=== PATIENT | female | born 1980 | race African-American/Black ===

== ENCOUNTER 2017-01-14 03:29 | Inpatient (IN) ==
[2017-01-14] MEDS ORDERED: MAG-AL + SIM ORAL LIQUID 30ml PO PRN ×2 (06:42→19:01)
[2017-01-14] MEDS ORDERED: CALCIUM CARBONATE Chewable 500mg TABLET PO PRN ×2 (06:42→19:01)
[2017-01-14] MEDS ORDERED: LIDOCAINE 1% (10mg/ml) 2mL INJ PF SDV ID PRN (06:42)
[2017-01-14] MEDS ORDERED: CARBOPROST 250 MCG/ML INJECTION IM PRN (06:42)
[2017-01-14] MEDS ORDERED: ACETAMINOPHEN 500 MG TABLET PO PRN ×2 (06:42→19:01)
[2017-01-14] MEDS ORDERED: OXYTOCIN DRIP 30 UNIT/500 ML ML IV PRN (06:42)
[2017-01-14] MEDS ORDERED: METHYLERGONOVINE 0.2 MG/ML INJECTION IM PRN (06:42)
[2017-01-14 07:26] VITALS: BMI 27.6
[2017-01-14] MEDS: LR 1,000 ML IV PRN ×3 (07:37→21:47)
[2017-01-14] MEDS: D5LR 1,000 ML IV PRN ×2 (07:40→16:00)
[2017-01-14] MEDS: ONDANSETRON 4 MG/2 ML INJECTION IVP PRN ×2 (07:58→14:03)
--- NOTE | 2017-01-14 18:35 | Anesthesia Postoperative Note ---
- Date and Time Date: 01/14/17 Time: 18:32 - Status Patient Participated in Evaluation: Patient Participated in Person Vital Signs: Pulse Rate 105 H 01/14/17 07:19 Respiratory Rate 16 01/14/17 07:19 Blood Pressure 127/96 H 01/14/17 07:19 Respiratory Function: Airway Patent, Regular Respirations Cardiovascular Function: Regular Pulse Mental Status: Alert and Oriented Pain Intensity: 0 Hydration: Taking PO Fluids Complications During Recover: None Apparent Post Anesthesia Care Notes: moves lower extremeties without problems. Spoke with patient about anesthesia plan for PPTL procedure tomorrow. Plan on removing catheter and placing a spinal for her procedure. Questions invited and answered. Graciela Coley [employer] - Follow-Up Instructions Instructions: Per Surgeon
[2017-01-14] MEDS ORDERED: DiphenhydrAMINE 25 MG CAPSULE PO PRN (19:01)
[2017-01-14] MEDS ORDERED: OXYTOCIN DRIP 30 UNIT/500 ML ML IV SCH (19:01)
[2017-01-14] MEDS ORDERED: HYDROCORTISONE 2.5% CREAM 30gm RECTALLY PRN (19:01)
[2017-01-14] MEDS ORDERED: TRAMADOL 50 MG TABLET PO PRN (19:01)
--- NOTE | 2017-01-14 19:44 | Labor and Delivery Note ---
DATE OF DELIVERY 01/14/2017 NARRATIVE Mrs. Bose progressed very well in first stage of labor. She began to push with excellent effort at the complete and +2 presentation. After a few pushes she delivered the head in the OA presentation. Baby was bulb suctioned on the perineum. With one further push baby was delivered in total. Baby was then further bulb suctioned and placed on mother's abdomen. After about two and half minutes the cord was soft and flat. It was therefore doubly clamped and cut by the baby's father, Jorge. This is a liveborn female with Apgars of 9/9. The baby has not yet been weighed as she is still in [id number] contact with mom. After a few moments the placenta delivered spontaneously intact. It had a normal configuration and a normal-appearing three-vessel cord. The perineum was intact and no stitches were required. Total blood loss was approximately 300 mL. At the time of this dictation mother and baby are both doing well. The patient continues to express her desire for tubal ligation and sterilization tomorrow. That has been scheduled for noon. We have reviewed the options of that today. LACEY
[2017-01-14] MEDS: IBUPROFEN 800 MG TABLET PO PRN (21:29)
[2017-01-14] MEDS: DIPHENOXYLATE /ATROPINE TABLET PO PRN (21:38)
[2017-01-15] MEDS ORDERED: ONDANSETRON 4 MG/2 ML INJECTION IVP PRN (06:59)
[2017-01-15] MEDS ORDERED: ROPIVACAINE 1% 10MG/ML INJ 200 MG, SUFentanil 50 MCG in NS 100 ML EPI PRN (06:59)
[2017-01-15] MEDS ORDERED: NALOXONE 0.4 MG/ML INJECTION IVP PRN (06:59)
[2017-01-15] MEDS ORDERED: DiphenhydrAMINE 50 MG/ML INJECTION IVP PRN (06:59)
--- NOTE | 2017-01-15 06:59 | Anesthesia Preoperative Report ---
Anesthesia Epidural/Spinal Rec - Date and Time Date: 01/15/17 Procedure: Labor Epidural Plan: Epidural - Vital Signs Vital Signs: Temperature 98.2 F 01/15/17 02:05 Pulse Rate 70 01/15/17 02:05 Respiratory Rate 16 01/15/17 02:05 Blood Pressure 103/58 01/15/17 02:05 Pulse Oximetry 99 01/15/17 02:05 /Para: P:7 - Medictaions & Allergies Inpatient Medications: Current Medications Acetaminophen (Tylenol) 500 - 1,000 mg PO Q4HR PRN PRN Reason: Pain Al Hydroxide/Mg Hydroxide (Maalox Plus) 30 ml PO Q4H PRN PRN Reason: Indigestion Calcium Carbonate (Tums) 500 - 1,000 mg PO Q2H PRN Diphenhydramine HCl (Benadryl) 25 - 50 mg PO Q6H PRN PRN Reason: Itching Diphenoxylate HCl/Atropine (Lomotil) 1 tab PO PRN PRN Last Admin: 01/14/17 21:38 Dose: 1 tab Docusate Calcium (Surfak) 240 mg PO DAILY HALI Hydrocortisone (Anusol-Hc 2.5% Cream) 1 applic RECTALLY PRN PRN PRN Reason: Hemorrhoids Ibuprofen (Motrin) 800 mg PO Q8H PRN PRN Reason: Pain Last Admin: 01/14/17 21:29 Dose: 800 mg Magnesium Hydroxide (Mom) 30 ml PO DAILY PRN PRN Reason: Constipation Phenylephrine HCl (Anusol Supp) 1 supp NH PRN PRN Prenat Multivit/Dorado/Iron/Folic Ac (Huy ) 1 tab PO DAILY HALI Tramadol HCl (Ultram) 60 mg PO Q6H PRN PRN Reason: Pain Allergies/Adverse Reactions: Allergies Allergy/AdvReac Type Severity Reaction Status Date / Time hydrocodone Allergy Unknown Itching Verified 01/14/17 07:18 oxycodone Allergy Unknown Itching Verified 01/14/17 07:18 - Home Medications Home Medications: Home Medications Medication Instructions Recorded Confirmed Type Butalb/Acetaminophen/Caffeine 40 mg PO Q6HPRN PRN 12/26/16 01/14/17 History [Fioricet] Calcium 600 + D 1 tab PO DAILY 12/26/16 01/14/17 History Demerol 1 tab PO Q3-4HR 12/26/16 01/14/17 History DiphenhydrAMINE [Benadryl] 1 cap PO Q6H 12/26/16 01/14/17 History Vit Calc,Iron,Folic 1 tab PO DAILY 12/26/16 01/14/17 History [ Vitamins] - Medical History Respiratory: DENIES: Asthma, Bronchitis, Chronic Obstructive Pulmonary Disease (COPD), Dyspnea, Orthopnea, Pulmonary Embolism, Pneumonia, Upper Respiratory Infection, Pulmonary Edema, Sleep Apnea, Tuberculosis, Other Cardiovascular: Reports: Hypertension (with ) Gastrointestional: DENIES: Obstructive Bowel, Hepatitis, Cirrhosis, Nausea or Vomiting Present, Gastroesophageal Reflux Disease, Gastrointestinal Bleeding, Hiatal Hernia, Ulcer , Morbid Obesity, Other Neuro/Musculoskeletal: Reports: Headaches (migraine history) Renal/Endocrine: DENIES: Diabetes Mellitus Type 1, Diabetes Mellitus Type 2, Renal Failure, Dialysis, Thyroid Disease, Weight Loss, Weight Gain, Other Other History: Reports: Now - Surgical History Reproductive Surgery/Treatment: DENIES: Section Anesthesia Reactions: None Hx Family Anesthesia Reaction: No History of Motion Sickness: No - Social History Smoking Status: Former smoker Substance Use Type: does not use - Pertinent Findings Lab Data: CBC and BMP 01/15/17 06:43 EKG Rhythm: Normal Sinus Rhythm - Physical Exam Respiratory Exam: lungs clear, bilateral breath sounds equal Cardiovascular Exam: regular rate and rhythm, no murmur - Airway Assessment Mallampati Score: II TMD: 3 Fingerbreadths Neck Extension: good Overall Assessment: may be difficult intubation - ASA ASA Score: 2 - Discussion Discussion: Discussed risks/options/alternatives of anesthesia and questions answered. Patient consents. Nursing pain assessment noted. Anesthesia Discussion: spouse Attestation Statement: Prior to the delivery of any anesthetic medication, I examined the patient, developed the plan, obtained the patient's consent and discussed the risk and benefits of the procedure with the patient/guardian.
--- NOTE | 2017-01-15 07:10 | OB/GYN Progress Note ---
OB-PP Progress Note - General POD:: POD1 Maternal Group B Strep: Negative Maternal blood type: O+ General: Pt reports feeling well. Has decided to postpone her TL for now. Would like to go home later today. - Subjective Date: 01/15/17 Lochia: Minimal Pain: controlled Voiding: voiding Nausea or Vomiting Present: No - Objective Vital Signs: Last Vital Signs Temp 98.2 F 01/15/17 02:05 Pulse 70 01/15/17 02:05 Resp 16 01/15/17 02:05 BP 103/58 01/15/17 02:05 Pulse Ox 99 01/15/17 02:05 Urine Output: good Abdomen: fundus firm, non-tender Extremities: non-tender Laboratory: Laboratory Results - last 24 hr 01/14/17 01/15/17 07:29 06:43 WBC 8.4 6.8 RBC 4.90 4.48 Hgb 13.5 12.5 Hct 42.4 39.2 MCV 86.5 87.5 MCH 27.6 27.9 MCHC 31.8 31.9 RDW Std Deviation 45.7 45.3 Plt Count 120 L 101 L MPV 12.1 11.5 - Assessment Assessment: SPANEESHD - Plan Plan: routine care Expected date of discharge: 01/15/17 Plan repeat platelet count at 6 week visit.
[2017-01-15] MEDS: DIPHENOXYLATE /ATROPINE TABLET PO PRN ×2 (07:40→16:22)
--- NOTE | 2017-01-15 08:08 | OB/GYN Progress Note ---
OB-PP Progress Note - General PPD1 Maternal Group B Strep: Negative Maternal blood type: O+ - Subjective Date: 01/15/17 Lochia: Minimal Pain: controlled Voiding: voiding Nausea or Vomiting Present: Yes (Had nausea and diarrhea prior to delivery. [place] better through the night. ) Nausea or Vomiting Present: Now reports nausea again and given a dose of Zofran. Occas. diarrha. Unsure if she desires dismissal today. - Objective Vital Signs: Last Vital Signs Temp 98.4 F 01/15/17 06:30 Pulse 89 01/15/17 06:30 Resp 16 01/15/17 06:30 BP 105/59 01/15/17 06:30 Pulse Ox 97 01/15/17 06:30 Urine Output: good General: alert and oriented Abdomen: fundus firm Extremities: non-tender Laboratory: Laboratory Results - last 24 hr 01/15/17 06:43 WBC 6.8 RBC 4.48 Hgb 12.5 Hct 39.2 MCV 87.5 MCH 27.9 MCHC 31.9 RDW Std Deviation 45.3 Plt Count 101 L MPV 11.5 - Assessment Assessment: - Plan Plan: routine care
[2017-01-15] MEDS ORDERED: DOCUSATE CALCIUM 240 MG CAPSULE PO SCH (09:00)
[2017-01-15] MEDS ORDERED: PRENATAL VITAMIN TABLET PO SCH (09:00)
[2017-01-15] MEDS: IBUPROFEN 800 MG TABLET PO PRN (13:28)
[2017-01-15 20:11] VITALS: BP 130/88; PULSE 76; RESP 18; TEMP 98; O2SAT 100
== END 2017-01-15 19:00 | disposition home or self-care (01) | DRG 775 ==
LOC: MC 06:38
PROVIDERS: ADMIT Obstetrics & Gynecology; ATTEND Obstetrics & Gynecology